=== PATIENT | female | born 1995 | race Two or more races ===

== ENCOUNTER 2019-07-06 13:50 | Emergency (ER) | payer SELFPAY ==
[2019-07-06 14:11] VITALS: BP 109/74; PULSE 74; TEMP 98.8; BMI 21.1
--- NOTE | 2019-07-06 14:20 | PDOC ---
History of Present Illness - General Chief Complaint: Respiratory Stated Complaint: COUGH Time Seen by Provider: 07/06/19 14:03 - History of Present Illness Initial Comments: 07/06/19 14:20 Chief complaint: Cough HPI: Cough for approximately 1 week, which has become intractable. Seen at urgent care 3 days ago, prescribed Augmentin. No improvement. Review of systems: Fever to 101 initially, now fever has not been elevated for 3 days despite taking no antipyretics. Nonproductive cough, no sputum. No chest pain, shortness of breath, abdominal pain, nausea, vomiting, diarrhea, visual or focal neurologic symptoms, unsteadiness of gait, dysuria or frequency , vaginal bleeding or discharge. Menses regular. Doing approximately 1 week. Denies possibility of . Past medical history: Chronic bronchitis, no definite diagnosis of asthma. Was a heavy smoker, quit 1 month ago. Social/family history reviewed and noncontributory Physical exam: Alert and oriented well-developed well-nourished mild distress due to frequent coughing, but cheerful and cooperative Afebrile, vital signs normal including normal respiratory rate and oxygen saturation of 100% on room air HEENT normal Neck supple without bruit mass or nodes Chest clear with full breath sounds bilaterally. No wheezes rales or rhonchi. CV regular without murmur rub or gallop Abdomen benign Skin clear, no rash, adequate turgor and wet mucous membranes Neurological intact Impression: Acute bronchitis, no sign of pneumonia. No history of asthma but recently stopped smoking. Possible infection with atypicals which would not be covered by Augmentin Plan: Discontinue Augmentin. Continue other medications for symptomatic relief of cough. Begin a macrolide, azithromycin, which will cover atypicals. Rest and fluids. Recheck if symptoms worsen. Otherwise follow-up primary physician. Outside of coughing, no acute distress at discharge to follow-up as directed.. Past History - Past Medical History Allergies/Adverse Reactions: Allergies Allergy/AdvReac Type Severity Reaction Status Date / Time escitalopram [From Lexapro] Allergy Verified 07/06/19 13:54 kiwi Allergy Verified 07/06/19 13:54 prednisone Allergy Verified 07/06/19 13:54 [place]TS Allergy Uncoded 07/06/19 13:54 Home Medications: Ambulatory Orders Albuterol Sulfate Inhaler - [Ventolin Hfa Inhaler -] 1 - 2 inh PO ASDIR PRN 06/25 Azithromycin [Zithromax 250mg Tablets -] 250 mg PO UTDICT #6 tab 07/06/19 Benzonatate 200 mg PO ASDIR 07/06/19 Fluticasone Propionate 1 spray IH ASDIR 07/06/19 L.acidoph,Paracasei, B.lactis [Probiotic] 1 each PO DAILY 07/06/19 Promethazine HCl/Codeine [Promethazine-Codeine Syrup] 1 tsp PO ASDIR 07/06/19 COPD: No GI Disorders: Yes (ACID REFLUX) - Psycho Social/Smoking Cessation Hx Smoking History: Former smoker Have you smoked in the past 12 months: Yes Information on smoking cessation initiated: Yes Hx Alcohol Use: (occasional) *Physical Exam - Vital Signs Last Vital Signs Temp Pulse Resp BP Pulse Ox 98.8 F 74 18 109/74 100 07/06/19 13:50 07/06/19 13:50 07/06/19 13:50 07/06/19 13:50 07/06/19 13:50 Discharge - Discharge Information Problems reviewed: Yes Clinical Impression/Diagnosis: Bronchitis Condition: Stable Disposition: HOME - Admission No - Additional Discharge Information Prescriptions: Azithromycin [Zithromax 250mg Tablets -] 250 mg PO UTDICT #6 tab - Follow up/Referral - Patient Discharge Instructions Patient Printed Discharge Instructions: DI for Acute Bronchitis Additional Instructions: Stop the current antibiotic Augmentin. Begin new antibiotic today as prescribed. Continue other medications for relief of symptoms. Return to ER if there is high fever, chest pain, or shortness of breath. Otherwise follow-up primary physician 3 to 5 days - Post Discharge Activity Work/Back to School Note: Back to Work
== END 2019-07-06 14:25 | disposition home or self-care (01) ==
LOC: FER 13:50
DX: J40 Bronchitis, not specified as acute or chronic (principal); Z88.8 Allergy status to other drugs, medicaments and biological substances; Z91.018 Allergy to other foods; K21.9 Gastro-esophageal reflux disease without esophagitis; Z87.891 Personal history of nicotine dependence
CPT/HCPCS: 99283-25

== ENCOUNTER 2020-03-19 13:20 | Emergency (ER) | payer OTHER ==
[2020-03-19 13:40] VITALS: BP 126/73; PULSE 96; TEMP 99.5; BMI 22.7
== END 2020-03-19 14:37 | disposition home or self-care (01) ==
LOC: FER 13:20
DX: J06.9 Acute upper respiratory infection, unspecified (principal)
CPT/HCPCS: 99283-25; C9803; U0003

== ENCOUNTER 2020-08-17 17:51 | Emergency (ER) | payer OTHER ==
[2020-08-17 18:08] VITALS: BP 125/80; PULSE 88; TEMP 98.5; BMI 23.5
== END 2020-08-17 18:55 | disposition home or self-care (01) ==
LOC: FER 17:51
DX: S93.431A Sprain of tibiofibular ligament of right ankle, initial encounter (principal)
CPT/HCPCS: 73610-TC-RT-FY; 99283-25

== ENCOUNTER 2021-02-06 11:50 | Emergency (ER) | payer OTHER ==
[2021-02-06 12:06] VITALS: BP 116/64; PULSE 70; TEMP 99.6; BMI 21.6
== END 2021-02-06 13:30 | disposition home or self-care (01) ==
LOC: FER 11:50
DX: S63.619A Unspecified sprain of unspecified finger, initial encounter (principal); W23.1XXA Caught, crushed, jammed, or pinched between stationary objects, initial encounter
CPT/HCPCS: 73130-TC-RT-FY; 99283-25

== ENCOUNTER 2021-12-22 13:39 | Emergency (ER) | payer OTHER ==
[2021-12-22 14:08] VITALS: BP 111/67; PULSE 69; RESP 18; TEMP 99; BMI 20.3
== END 2021-12-22 15:05 | disposition home or self-care (01) ==
LOC: FER 13:39
DX: S63.502A Unspecified sprain of left wrist, initial encounter (principal)
CPT/HCPCS: 73110-TC-LT-FY; 99284-25

== ENCOUNTER 2023-11-23 16:51 | Emergency (ER) | payer OTHER ==
[2023-11-23] MEDS ORDERED: ACETAMINOPHEN 325 MG TABLET (FP) ONE (17:55)
[2023-11-23] MEDS ORDERED: LIDOCAINE 5% TOPICAL PATCH ONE (17:55)
[2023-11-23] MEDS: LIDOCAINE 5% TOPICAL PATCH TP ONE (18:00)
[2023-11-23] MEDS: ACETAMINOPHEN 325 MG TABLET (FP) PO ONE (18:00)
[2023-11-23 18:01] VITALS: BP 101/55; PULSE 79; RESP 18; TEMP 98.6; BMI 19.5
[2023-11-23] MEDS ORDERED: LIDOCAINE PATCH REMOVAL MC SCH (22:00)
== END 2023-11-23 18:35 | disposition home or self-care (01) ==
LOC: FER 16:51
DX: M25.552 Pain in left hip (principal)
CPT/HCPCS: 73502-TC-LT-FY; 99283-25